=== PATIENT | male | born 1995 | race Caucasian/White ===

== ENCOUNTER → 2017-07-30 | Outpatient (CLI) | payer BC ==
[~2017-07-30] MED LIST: BUPR-472 PO; CHOL200074 PO; COLC0.6C3 PO; CYCL10TA29 PO; ESCI10TA8 PO; ESCI20TA8 PO; OMEP-125 PO
== END ==
LOC: LAB 12:24
PROVIDERS: ATTEND Internal Medicine
DX: F41.8 Other specified anxiety disorders (principal); R79.89 Other specified abnormal findings of blood chemistry; E66.9 Obesity, unspecified
CPT/HCPCS: 36415; 81256; 82040; 82247; 82310; 82374; 82435; 82565; 82947; 84075; 84132; 84155; 84295; 84450; 84460; 84520; 86038

== ENCOUNTER → 2017-08-02 | Outpatient (CLI) | payer BC ==
--- NOTE | 2017-08-02 14:10 | RADIOLOGY IMAGING REPORT ---
FACILITY: [facility] - [place] PATIENT NAME: Joseph Cárdenas : 1995 MR: [id number] V: [id number] EXAM DATE: ORDERING PHYSICIAN: JANE MASON TECHNOLOGIST: Location: [facility] [place] Patient: Joseph Cárdenas : 1995 Visit/Account:[id number] Date of Sevice: 08/02/2017 EXAMINATION: Abdominal ultrasound complete HISTORY: Elevated LFTs COMPARISON: None. FINDINGS: Gallbladder: No stones, wall thickening, pericholecystic fluid or sonographic Fonseca sign. Liver: Liver is mildly enlarged at 17.2 centers in length. There is increased echogenicity throughou t the liver which can be seen with fatty infiltration or other infiltrative process. Common duct: Normal measuring 2.1 mm. Pancreas: Partially obscured by bowel gas although the visualized portion appeared unremarkable Spleen: Normal in size and echogenicity measuring 11.9 cm in length. Kidneys: Normal in size and echogenicity, the right measures 12.7 cm in length, and the left 13.4 cm . No hydronephrosis. Upper abdominal aorta and IVC: Negative. Ascites: None. IMPRESSION: Mild hepatomegaly with increased echogenicity seen throughout the liver which can be seen with fatty infiltration or other infiltrative process. Report Dictated By: Mae Steve MD at 08/02/2017 2:02 PM Report E-Signed By: Mae Steve MD at 08/02/2017 2:04 PM WSN:[email or web address]
== END ==
LOC: US 02:18
PROVIDERS: ATTEND Internal Medicine
DX: K76.0 Fatty (change of) liver, not elsewhere classified (principal); R16.0 Hepatomegaly, not elsewhere classified
CPT/HCPCS: 76700